=== PATIENT | female | born 1940 | race Caucasian/White ===

== ENCOUNTER 2017-01-22 22:32 | Inpatient (IN) | payer OTHER ==
[~2017-01-22] VITALS: Ht 165.1 cm; Wt 90.3 kg
[2017-01-22 23:10] LABS: HEMOGLOBIN 14.2 gm/dl (12.3-15.3); RED BLOOD COUNT 4.72 M/UL (4.00-5.10); WHITE BLOOD COUNT 13.3 K/UL (4.5-11.0)
[2017-01-22 23:31] LABS: BUN/CREATININE RATIO 20 (0-10)
[2017-01-23] MEDS ORDERED: LOTENSIN TAB 1010 MG PO (10:51)
[2017-01-23] MEDS ORDERED: HYDROCHLOROTHIA25 MG PO (10:51)
[2017-01-23] MEDS ORDERED: KLOR-CON M2020 MEQ PO (10:52)
[2017-01-23] MEDS ORDERED: SYNTHROID75 MCG PO (10:52)
[2017-01-23] MEDS ORDERED: PROVENTIL HFA 61 INH INH (10:53)
[2017-01-23] MEDS ORDERED: IPRAT-ALBUT 0.5-3 ML INH (10:54)
[2017-01-24 03:46] LABS: HEMOGLOBIN 13.4 gm/dl (12.3-15.3); RED BLOOD COUNT 4.56 M/UL (4.00-5.10); WHITE BLOOD COUNT 14.2 K/UL (4.5-11.0)
[2017-01-24 04:13] LABS: BUN/CREATININE RATIO 25 (0-10)
[2017-01-25 06:07] LABS: BUN/CREATININE RATIO 38 (0-10)
[2017-01-26 04:31] LABS: HEMOGLOBIN 11.2 gm/dl (12.3-15.3); RED BLOOD COUNT 3.86 M/UL (4.00-5.10); WHITE BLOOD COUNT 6.2 K/UL (4.5-11.0)
[2017-01-26 04:47] LABS: BUN/CREATININE RATIO 34 (0-10)
[2017-01-26] MEDS ORDERED: LEVAQUIN750 MG PO (15:08)
[2017-01-26] MEDS ORDERED: BREO ELLIPTA 11 EACH INH (15:09)
[2017-01-26] MEDS ORDERED: PREDNISONE 10 M10 MG GT (15:11)
[2017-01-26] MEDS ORDERED: PROTONIX 40 MG40 M1 PO (16:22)
[2017-01-26] MEDS ORDERED: SINGULAIR10 MG PO (16:23)
[2017-01-26] MEDS ORDERED: ADULT LOW DOSE81 MG PO (16:24)
[2017-01-26] MEDS ORDERED: LOPRESSOR 25 MG25 MG PO (16:29)
[2017-01-26] MEDS ORDERED: PULMICORT0.5 MG/21 INH (16:32)
[2017-01-26] MEDS ORDERED: PROVENTIL HFA 61 INH INH (16:45)
== END 2017-01-26 17:00 | disposition home or self-care (01) | DRG 286 ==
LOC: ER1 22:32 → ZEROF 01-23 05:05 → PROG CARE 01-23 15:00
PROVIDERS: Family Medicine; Internal Medicine; Internal Medicine Interventional Cardiology; ADMIT Hospitalist
PROC: 4A023N8 Measurement of Cardiac Sampling and Pressure, Bilateral, Percutaneous Approach (ICD-10-PCS; principal; 2017-01-25)
DX: I24.9 Acute ischemic heart disease, unspecified (principal); J96.01 Acute respiratory failure with hypoxia; J45.909 Unspecified asthma, uncomplicated; I10 Essential (primary) hypertension; E03.9 Hypothyroidism, unspecified; E87.6 Hypokalemia; M79.7 Fibromyalgia; M72.0 Palmar fascial fibromatosis [Dupuytren]; Z98.890 Other specified postprocedural states; Z96.652 Presence of left artificial knee joint; Z98.42 Cataract extraction status, left eye; Z98.41 Cataract extraction status, right eye; Z96.1 Presence of intraocular lens; Z90.49 Acquired absence of other specified parts of digestive tract; Z88.0 Allergy status to penicillin; Z88.1 Allergy status to other antibiotic agents; Z88.8 Allergy status to other drugs, medicaments and biological substances; Z83.6 Family history of other diseases of the respiratory system; Z82.49 Family history of ischemic heart disease and other diseases of the circulatory system; Z79.899 Other long term (current) drug therapy
CPT/HCPCS: ECHO; 36415; 36600; 71010; 71020; 80048; 80053; 80061; 82550; 82553; 82785; 82803; 83735; 83874; 84132; 84439; 84443; 84484; 85025; 85027; 85730; 87040; 87070; 87205; 93005; 93306; 93971; 94640; 94664; 96365; 96366; 96367; 96375; 99285; C1769; J0456; J0696; J1644; J1940; J1956; J2250; J2920; J2930; J3010; J7030; J7040; J7050; Q0163; Q9963